=== PATIENT | female | born 1985 | race Caucasian/White ===

== ENCOUNTER 2017-07-02 09:07 | Emergency (ER) | payer MEDICAID ==
[~2017-07-02] VITALS: Ht 165.1 cm; Wt 117.9 kg
[2017-07-02 09:15] VITALS: BP 135/74
[2017-07-02] MEDS ORDERED: IBUPROFEN 600 MG TABLET PO ONE ×2 (09:43→10:00)
--- NOTE | 2017-07-02 10:15 | NUR ---
APPLIED ICE PACK TO THE NECK.
== END 2017-07-02 11:15 | disposition home or self-care (01) ==
LOC: ER 09:09
DX: S13.4XXA Sprain of ligaments of cervical spine, initial encounter (principal); Z88.0 Allergy status to penicillin; V43.62XA Car passenger injured in collision with other type car in traffic accident, initial encounter; Y93.89 Activity, other specified; Y92.410 Unspecified street and highway as the place of occurrence of the external cause; Y99.8 Other external cause status
CPT/HCPCS: A4606; Z7610